=== PATIENT | male | born 1950 | race Caucasian/White ===

== ENCOUNTER 2023-06-16 06:56 | Observation (INO) ==
--- NOTE | 2023-05-23 11:46 | PAT Medication Instructions ---
Medication Instructions Date of Service May 23, 2023 Home Medications amlodipine 5 mg tablet 5 mg PO QAM levothyroxine 50 mcg tablet 25 mcg PO QAM valsartan 320 mg tablet 320 mg PO QAM DO NOT take the morning of surgery valsartan 320 mg tablet 320 mg PO QAM Take morning of surgery With a small sip of water, OTHERWISE NOTHING TO EAT OR DRINK AFTER MIDNIGHT: amlodipine 5 mg tablet 5 mg PO QAM levothyroxine 50 mcg tablet 25 mcg PO QAM Other Notes If you have any questions please call us at [phone] or [phone] or [phone] or [phone]
--- NOTE | 2023-05-25 11:37 | Anesthesiology Consultation ---
Date of Service May 25, 2023 Assessment & Plan (1) Encounter for pre-operative examination: - Infectious disease screening: Per assessment on 05/25/23: No known infectious disease contacts or current infectious disease symptoms. No noted Covid positive test result in past 90 days. - Outpatient joint assessment: Pt currently scheduled for inpatient pathway. If surgeon requests review for outpatient joint pathway, patient is an acceptable candidate for outpatient joint program from anesthesia standpoint pending surgeon's office assessment that patient is motivated, has good support and completes [facility] Day [facility] Program preop requirements. Chart Review Chart Review: Acceptable Risk for Surgery and Patient seen in Pre Admission Testing Teaching & Discussion Pre-Anesthesia Teaching/Discussion Notes: Instructed NPO after midnight before surgery,except medications with 15 cc of water. Medication instructions provided according to the PAT guidelines. History Surgery Operation Date: 06/16/23 12:40 Proposed Procedures p Right Anterior Total Hip Arthroplasty - Jonathan Martinez, Height/Weight Height: 5 ft 7 in Weight: 81.9 kg Allergies Allergy/AdvReac Type Severity Reaction Status Date / Time No Known Allergies Allergy Verified 05/18/23 15:32 Medications Home Medications Medication Instructions Recorded Confirmed Last Taken amlodipine 5 mg tablet 5 mg PO QAM 05/18/23 05/18/23 Unknown levothyroxine 50 mcg tablet 25 mcg PO QAM 05/18/23 05/18/23 Unknown valsartan 320 mg tablet 320 mg PO QAM 05/18/23 05/18/23 Unknown hydrochlorothiazide 25 mg tablet 25 mg PO DAILY 05/25/23 05/25/23 Unknown Past Medical History Medical History Acid reflux Anemia Hard of hearing Hypertension Hypothyroidism Osteoarthritis of right hip Exercise / Class Metabolic Activity II 4-5 Yardwork/Stairs/Walk up hill (one FS (no CP, no SOB)) Past Family History Family History Mother Family history of reaction to anesthesia had stager 4 lung cancer and /aspirated after esophageal dilation procedure Past Surgical History Surgical History History of anesthesia reaction BP dropped after hernia repair History of root canal procedure History of tooth extraction History of umbilical hernia repair Past Anesthesia History Other Patient- BP dropped after hernia repair (felt r/t to dehydration, resolved with IVF) Mother- had stager 4 lung cancer and /aspirated after esophageal dilation procedure History of PONV No Hx of PONV and No Hx of Motion Sickness Social History Smoking Status: Never smoker Do You Dip or Chew Tobacco: No Hx Alcohol Use: No Hx Substance Use: No substance use type: does not use Review of Systems Patient denies chest pain, shortness of breath, dyspnea on exertion, fever, chills, cough, wheezing, palpitations. Physical Exam Vital Signs VITALS BP 155/85 P 61 TEMP 98.3 SP02 97%RA RESP 16 PHYSICAL Full cervical extension range of motion. Full TMJ range of motion. TMD 3.5 finger breaths Mallampati Score 3 Dentition: missing side, right lower side- root canal repair with titanium alisa which broke Lungs: clear throughout to auscultation Cardiac: regular rate and rhythm, no murmurs noted Spine: normal Carotid arteries: negative bruit Extremities: no LE edema Lab Results Anesthesia Preop Results Results Anesthesia Widget: WBC 5.43 K/ul (4.8-10.8) 05/25/23 Hgb 12.9 g/dl (14.0-18.0) L 05/25/23 Hct 38.0 % (42.0-52.0) L 05/25/23 Plt 219 K/uL (130-400) 05/25/23 Na 135 mmol/L (136-145) L 05/25/23 K 3.9 mmol/L (3.5-5.1) 05/25/23 Cl 103 mmol/L (98-107) 05/25/23 CO2 26 mmol/L (21-32) 05/25/23 BUN 22 mg/dl (6-23) 05/25/23 Creat 0.95 mg/dl (0.6-1.4) 05/25/23 Glucose Level 108 mg/dl (70-99(Fasting)) H 05/25/23 PT 10.9 Seconds (9.0-12.0) 05/25/23 PTT 29.1 Seconds (21.0-31.0) 05/25/23 INR 1.0 (0.9-1.1) 05/25/23 Blood Type A Positive 05/25/23 Antibody Screen NEGATIVE 05/25/23 Testing Laboratory Results Preop labs note anemia with hgb at 12.9. Per PCP office, most recent CBC for patient had hgb in the 13s. Preop testing forwarded to PCP for continuity of care* Electrocardiogram Date: 05/25/23 SB at 57bpm. "Otherwise normal ECG" Chest X-Ray Date: 05/25/23 FINDINGS: Hiatal hernia. Mild cardiomegaly. No pneumothorax, large pleural effusion or pulmonary edema. Mild linear atelectasis versus scarring in the lateral left lung base. Bones appear grossly intact. IMPRESSION: No acute process of the chest. Hiatal hernia.
--- NOTE | 2023-06-15 06:34 | History & Physical Report ---
Date of Service June 15, 2023 Assessment & Plan (1) Osteoarthritis of right hip: We will proceed with a right anterior total of arthroplasty. Postoperatively he will be started on aspirin for DVT prophylaxis and kept overnight in the hospital for postop medical management. He will be discharged home the . History of Present Illness Chief Complaint: Osteoarthritis of the right hip. Primary Care Provider: Berhane Chacon Ace is a pleasant 73-year-old male who has been dealing with chronic right hip pain. It started back in the early 80s. He was treated with some of anti- inflammatories. His symptoms have waxed and waned over the years. They have been much more severe over the past 2 years. He saw another physician and had x-rays and was treated conservatively. Unfortunately, he is continuing to have a lot of pain. X-rays and clinical examination have shown worsening osteoarthritis of the right hip. After failing conservative treatment, he has elected proceed with a right anterior total hip arthroplasty. Allergies Allergy/AdvReac Type Severity Reaction Status Date / Time No Known Allergies Allergy Verified 05/18/23 15:32 Home Medications Medication Instructions Recorded Confirmed Type amlodipine 5 mg tablet 5 mg PO QAM 05/18/23 05/18/23 History levothyroxine 50 mcg tablet 25 mcg PO QAM 05/18/23 05/18/23 History valsartan 320 mg tablet 320 mg PO QAM 05/18/23 05/18/23 History hydrochlorothiazide 25 mg tablet 25 mg PO DAILY 05/25/23 05/25/23 History Past Med/Surg History Medical History Anemia Acid reflux Hard of hearing Hypothyroidism Hypertension Osteoarthritis of right hip Surgical History History of anesthesia reaction BP dropped after hernia repair History of umbilical hernia repair History of root canal procedure History of tooth extraction Family History Mother Family history of reaction to anesthesia had stager 4 lung cancer and /aspirated after esophageal dilation procedure Social History Smoking Status: Never smoker Second Hand Exposure: No; Do You Dip or Chew Tobacco: No; Tobacco Cessation Education Requested by Patient: No Hx Alcohol Use: No Hx Substance Use: No Preferred Language: Gibraltarian Communication Ability: Effective 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 Physical Exam On physical examination the right hip, he has decreased range of motion with internal/external rotation. He has pain in his groin.. Constitutional WD/WN, vitals as above Eyes PERRL, conjunctivae normal, anicteric sclerae ENMT external ear and nose normal, oropharynx normal Neck trachea midline, no thyromegaly Respiratory normal respiratory effort Cardiovascular RRR, no murmur, no edema Gastrointestinal (Abdomen) normal bowel sounds, soft, nontender, no hepatosplenomegaly Psychiatric A+Ox3, euthymic affect Results & Data Results & Data Laboratory Results . Diagnostic Findings X-rays of the right hip and pelvis show advanced osteoarthritis with joint space narrowing osteophyte formation and tdir-yi-dwwn articulation.. PG Care Time/CCT Total # of Minutes Spent Total Time Spent with Patient: Total time spent is greater than 50% in coordination of care (as documented) at patient's floor/unit and/or counseling patient: Coding Level of Care Code None Diagnoses Osteoarthritis of right hip M16.11
[~2023-06-16 06:56] MED LIST: ACETAMINOPHEN 500 MG TAB PO SCH; BUPIVACAINE 0.5 % 5 MG/1 ML PF 10ML VIAL ONE; FAMOTIDINE 20 MG TAB PO SCH; GABAPENTIN 300 MG CAP PO SCH; Ketorolac (*for OR use only*) 30 MG, dexAMETHasone 4 MG, KETAMINE HCL (**OR use only) 1... INFIL SCH; LR 500ML BOLUS, THEN 15ML/HR IV SCH; LR 60ML/HR IV SCH; TRANEXAMIC ACID 1,000 MG **IV Intra-op IV SCH; TRANEXAMIC ACID 1,000 MG **IV Pre-op IV SCH; ceFAZolin 2000MG 2,000 MG/15 ML SYR IV SCH; dexAMETHasone 4 MG TAB PO SCH
--- NOTE | 2023-06-16 08:05 | History & Physical Bridge Note ---
Date of Service June 16, 2023 History & Physical Bridge Note I have examined the patient, reviewed the History & Physical and in the interval since the performance of the History & Physical I have noted the following changes of clinical significance: no changes noted
[2023-06-16] MEDS ORDERED: fentaNYL citrate PF 100 MCG/2 ML VIAL ONE (08:10)
[2023-06-16] MEDS ORDERED: PROPOFOL IV EMULSION 10 MG/ML 20 ML VIAL IV ONE (08:10)
[2023-06-16] MEDS ORDERED: LIDOCAINE 2% 2 ML VIAL/AMP(20MG/ML) INFIL ONE (08:10)
[2023-06-16] MEDS ORDERED: ONDANSETRON INJ 2 MG/ML 2 ML VIAL ONE (08:10)
[2023-06-16] MEDS ORDERED: MIDAZOLAM HCL 1 MG/ML 2ML VIAL ONE (08:10)
[2023-06-16] MEDS ORDERED: fentaNYL citrate PF 100 MCG/2 ML VIAL IV PRN (08:24)
[2023-06-16] MEDS ORDERED: ATROPINE SULFATE 0.1 MG/ML 10ML SYR IV PRN (08:24)
[2023-06-16] MEDS ORDERED: ePHEDrine sulfate 50 MG/ML AMP IV PRN (08:24)
[2023-06-16] MEDS ORDERED: ONDANSETRON INJ 2 MG/ML 2 ML VIAL IV PRN ×2 (08:24→12:54)
[2023-06-16] MEDS ORDERED: ORTHO JOINT ANESTHETIC ONE (08:42)
[2023-06-16] MEDS ORDERED: PHENYLEPHRINE 100MCG/ML 10ML SYR IV ONE (09:48)
[2023-06-16] MEDS ORDERED: PHENYLEPHRINE HCL 10 MG/ML VIAL ONE (10:04)
--- NOTE | 2023-06-16 10:35 | Fluoroscopy Report ---
FL hip RT 1V CLINICAL HISTORY: RIGHT ANTERIOR HIPright hip arthroplasty COMPARISON STUDY: 04/25/2023 FLUOROSCOPY TIME: 20 seconds FLUOROSCOPY IMAGES: 1 EXPOSURE DOSE: 1.24 mGy FINDINGS: Right hip arthroplasty and a straight satisfactory alignment. Expected postoperative soft t issue swelling with deep tissue air. IMPRESSION: Right hip arthroplasty with expected postoperative changes. ACT 112: Negative or not required by law. Electronically signed by: Vineet Flores M.D. 06/16/2023 10:34 AM
--- NOTE | 2023-06-16 11:09 | XRay Report ---
XR hip 1V RT w pelvis CLINICAL HISTORY: IN PACU - Post Surgical TECHNIQUE: 1 view of the right hip and single frontal view of the pelvis were obtained. Comparison: None available at the time of this dictation. FINDINGS: Patient is status post total hip arthroplasty with expected postsurgical changes including soft tissu e swelling and subcutaneous emphysema. IMPRESSION: Expected postoperative appearance status post placement of total hip arthroplasty. ACT 112: Negative or not required by law. Electronically signed by: Darío Ogden M.D. 06/16/2023 11:08 AM
[2023-06-16] MEDS ORDERED: HYDROmorphone INJ 2 MG/ML SYR/VIAL ONE (11:45)
--- NOTE | 2023-06-16 12:31 | Anesthesiology Progress Note ---
Date of Service June 16, 2023 Anesthesia Post Procedure Vital Signs Vital Signs: Temp Pulse Pulse Resp BP Pulse Ox O2 Del Method 06/16/23 11:40 97.5 F L 60 16 118/71 97 Room Air 06/16/23 11:30 56 L 18 113/68 95 Room Air 06/16/23 11:20 57 L 16 123/74 96 Room Air 06/16/23 11:10 68 20 123/73 99 Room Air 06/16/23 11:00 69 14 110/74 97 Room Air 06/16/23 10:50 66 16 120/70 100 Oxymask 06/16/23 10:40 64 13 107/64 100 Oxymask 06/16/23 10:33 97.5 F L 68 14 96/57 L 100 Oxymask 06/16/23 07:45 97.5 F L 67 18 154/93 H 98 Room Air O2 Flow Rate 06/16/23 11:40 06/16/23 11:30 06/16/23 11:20 06/16/23 11:10 06/16/23 11:00 06/16/23 10:50 6 06/16/23 10:40 9 06/16/23 10:33 9 06/16/23 07:45 Transfer of Care Handoff Completed per policy Notes Mental Status: alert / awake / arousable and participated in evaluation Patient Amnestic to Procedure: Yes Nausea / Vomiting: adequately controlled Pain: adequately controlled Airway Patency, RR, SpO2: stable & adequate BP & HR: stable & adequate Hydration State: stable & adequate Neuraxial Anesthesia: was administered and sensory block is resolving Anesthetic Complications: no major complications apparent and Pt Satisfied with anesthetic care
[2023-06-16] MEDS ORDERED: METOCLOPRAMIDE HCL INJ 5 MG/ML 2 ML VIAL IV PRN (12:54)
[2023-06-16] MEDS ORDERED: HYDROmorphone INJ 0.5 MG/0.5 ML SYR IV PRN (12:54)
[2023-06-16] MEDS ORDERED: bisacodyL 10 MG SUPP PR PRN (12:54)
[2023-06-16] MEDS ORDERED: oxyCODONE HCL IR 5 MG TAB (IMMEDIATE RELEASE) PO PRN (12:54)
[2023-06-16] MEDS ORDERED: NALOXONE HCL 0.4 MG/1 ML VIAL/CARP IV PRN (12:54)
[2023-06-16] MEDS ORDERED: MAGNESIUM HYDROXIDE SUSP 30 ML UDC PO PRN (12:54)
[2023-06-16] MEDS: SODIUM CHLORIDE 0.9% 1,000 ML IV SCH ×2 (13:21→22:06)
[2023-06-16] MEDS: ACETAMINOPHEN 500 MG TAB PO SCH ×2 (13:22→22:07)
[2023-06-16] MEDS: KETOROLAC TROMETHAMINE 15 MG/ML VIAL IV SCH ×2 (14:14→18:45)
[2023-06-16] MEDS: ceFAZolin 2000MG 2,000 MG/15 ML SYR IV SCH (16:05)
[2023-06-16] MEDS: ASPIRIN 81 MG ECTAB PO SCH (20:42)
[2023-06-16] MEDS: DOCUSATE SODIUM 100 MG CAP PO SCH (20:43)
[2023-06-16] MEDS ORDERED: SENNA 8.6 MG TAB PO SCH (21:00)
[2023-06-17] MEDS: KETOROLAC TROMETHAMINE 15 MG/ML VIAL IV SCH ×2 (01:35→08:25)
[2023-06-17] MEDS: ceFAZolin 2000MG 2,000 MG/15 ML SYR IV SCH (01:35)
[2023-06-17] MEDS: ACETAMINOPHEN 500 MG TAB PO SCH (05:22)
[2023-06-17] MEDS ORDERED: LEVOTHYROXINE SODIUM 25 MCG TABLET PO SCH (06:30)
[2023-06-17] MEDS ORDERED: dexAMETHasone 4 MG TAB PO SCH (08:00)
[2023-06-17] MEDS: DOCUSATE SODIUM 100 MG CAP PO SCH (08:26)
[2023-06-17] MEDS: ASPIRIN 81 MG ECTAB PO SCH (08:27)
[2023-06-17] MEDS ORDERED: amLODIPine BESYLATE 5 MG TAB PO SCH (09:00)
[2023-06-17] MEDS ORDERED: hydroCHLOROthiazide 25 MG TAB PO SCH (09:00)
[2023-06-17] MEDS ORDERED: MULTIVITAMIN TAB PO SCH (09:00)
[2023-06-17] MEDS ORDERED: VALSARTAN 80 MG TAB PO SCH (09:00)
--- NOTE | 2023-06-17 09:23 | Orthopedic Progress Note ---
Date of Service June 17, 2023 Assessment & Plan (1) Status post right hip replacement: Overall he is doing very well. He is not having much pain in the right hip. He will be seen by physical therapy today for ambulation and range of motion exercises. He is on aspirin for DVT prophylaxis. He can be discharged home later today. He will follow-up orthopedics in 2 weeks. Subjective Ace was seen and examined at bedside this morning. Overall is doing very well. Is not having much pain in the right hip. Is been up and ambulate to the bathroom. Has no complaints.. Review of Systems All systems reviewed & are unremarkable except as noted in HPI & below. Physical Exam On physical examination of right hip, the dressing is clean and dry. His leg is out full extension. He is active dorsiflexion plantarflexion of his right ankle.. Results & Data Results & Data Laboratory Results . Diagnostic Findings Postoperative x-rays of the right hip show the prosthesis to be in anatomic alignment without any evidence of fracture complication, or loosening.. PG Care Time/CCT Total # of Minutes Spent Total Time Spent with Patient: Total time spent is greater than 50% in coordination of care (as documented) at patient's floor/unit and/or counseling patient: Coding Level of Care Code 54749 Post Operative Follow-Up Diagnoses Status post right hip replacement Z96.641
--- NOTE | 2023-06-17 09:24 | Discharge Summary ---
Date of Service June 17, 2023 Admission HPI (Per Admitting) Ace is a pleasant 73-year-old male who has been dealing with chronic right hip pain. It started back in the early 80s. He was treated with some of anti- inflammatories. His symptoms have waxed and waned over the years. They have been much more severe over the past 2 years. He saw another physician and had x-rays and was treated conservatively. Unfortunately, he is continuing to have a lot of pain. X-rays and clinical examination have shown worsening osteoarthritis of the right hip. After failing conservative treatment, he has elected proceed with a right anterior total hip arthroplasty. Admission Exam (Per Admitting) On physical examination the right hip, he has decreased range of motion with internal/external rotation. He has pain in his groin.. Principal Diagnosis Same as "Discharge Diagnosis" noted below under Discharge Instructions. Discharge Exam On physical examination of right hip, the dressing is clean and dry. His leg is out full extension. He is active dorsiflexion plantarflexion of his right ankle.. Discharge Data Procedures Performed Operation Date: 06/16/23 09:00 Actual Procedures p Right Anterior Total Hip Arthroplasty(Right) - Jonathan Martinez DO Ordered Studies 06/16/23 09:00 FL hip RT 1V Routine Hospital Course (1) Status post right hip replacement: On June 16 2023 Ace arrived at [facility] and underwent a right anterior hip replacement without complication. He had a spinal anesthetic. Postoperatively he was started on aspirin for DVT prophylaxis and transferred to the general orthopedic floors. His hospital course was uneventful. On postop day #1, his vital signs were stable and his pain was well-controlled. He was able to participate well with physical therapy doing ambulation and range of motion exercises. He was then discharged home. He will follow-up orthopedics in 2 weeks. PG Care Time/CCT Total # of Minutes Spent Total Time Spent with Patient: Total time spent is greater than 50% in coordination of care (as documented) at patient's floor/unit and/or counseling patient: Discharge Plan Discharge Items Patient Disposition: Home - Home Health Services Reason For Visit: Right Hip Degenerative Joint Disease Discharge Diagnosis: Right hip replacement Activity: Per Instructions section Non-emergency contact: Surgeon Call non-emergency contact if: your wound has increased redness and your wound has increased drainage Follow-up/Referrals: Berhane Chacon [Primary Care Provider] - Diet: Regular Addtl Attending Provider Instructions: Activity and Therapy Recommendations: * If you are using [facility] then therapy will be provided at your home until they feel you have accomplished all of your goals. * If you are using [facility] then Physical Therapy will be provided until they feel you are ready to start Outpatient Physical Therapy. * If you are not using home therapy then Outpatient Physical Therapy should start about 3-5 days from your day of surgery. Therapy will last about 6-10 weeks * You were shown a series of exercises in the hospital. Do these exercises three times each day including the exercises you were shown in physical therapy. * Get up and walk several times each day.~ For the first four weeks, try not to stand or walk for more than one hour at a time. If you do stand or walk for more than one hour, you will not hurt anything, but your leg will likely swell.~~ * As you feel comfortable, you may change from the walker or crutches to a cane and~then to independent walking. Medications: * Narcotic You will likely be sent home from the hospital with a prescription for the narcotic pain medication that worked best throughout your stay. * Aspirin Most patients will be required to take Aspirin 81mg twice a day for 6 weeks after surgery. This is obtained [id number] and a prescription is not necessary. * Cefadroxil -take the antibiotic twice a day for 10 days to help with infections. * Other medications may be prescribed for specific circumstances. If you have any questions, please call the office at . * Resume previous home medications unless otherwise instructed TEDs/Elastic Stockings: The white elastic stockings help limit swelling and prevent blood clots from forming in your legs. The more you wear them, the more they work. Wear them for six weeks. Dressing Care: Leave the Silverlon dressing in place for 7 days. After 7 days you may remove the dressing. If the incision is not draining then you may leave the zeke open to air. If there is a little bit of drainage or if the zeke are getting stuck on your clothing then cover the incision with a dry dressing. The zeke will be removed at your 2 week follow-up appointment. Showering: You may shower with the Silverlon dressing in place. Do not let the shower spray hit the dressing directly. Pat the Silverlon dressing dry. If the dressing becomes wet underneath, then simply remove the dressing. Keep the incision dry until you are 7 days out from the day of surgery. After 7 days you may remove the Silverlon dressing and shower with the zeke exposed. Let soapy water run over the zeke and pat them dry. Do not scrub or soak the incision. Things To Watch For: * Drainage from the incision site that occurs more than one week after your surgery. * Increased redness at the incision site. * Fever above 102 degrees Fahrenheit. * Unusual chest pain or shortness of breath. * Call [facility] at with any of the above problems Follow-Up Visit: Follow-up with Dr. Martinez's PA (Jonathan Greenwood) 2-3 weeks after your day of surgery. He will remove your zeke and answer any questions. If you have any additional questions or concerns, Dr Martinez is usually in the office at the same time and will be available An appointment was probably scheduled when you signed-up for surgery in the office. If you have any questions call Office Instructions: More detailed instructions as well as Frequently Asked Questions were provided in a folder by our office when you signed-up for surgery. Please review these instructions when you get home. If you have any further questions or concerns, please feel free to call the office at [phone] Pending Studies at Discharge: No Stand-Alone Forms: My [facility], Smoking Cessation Medications and DC Order Prescriptions: New oxycodone 5 mg Tablet 5 mg PO Q4H PRN (Reason: pain) Qty: 30 0RF cefadroxil 500 mg capsule 500 mg PO BID 10 Days Qty: 20 0RF aspirin 81 mg Tablet,Delayed Release (Dr/Ec) 81 mg PO BID 42 Days Qty: 0 0RF Continued amlodipine 5 mg Tablet 5 mg PO QAM levothyroxine 50 mcg Tablet 25 mcg PO QAM valsartan 320 mg Tablet 320 mg PO QAM hydrochlorothiazide 25 mg Tablet 25 mg PO DAILY Admission Data Admit Date/Time: 06/16/23 10:36 Attending Provider: Jonathan Martinez Admit Provider: Jonathan Martinez Primary Care Provider: Berhane Chacon
--- NOTE | 2023-06-26 11:07 | Operative Report ---
PG Post Operative Report Pre & Post Diagnosis Operation Date: 06/16/23 09:00 Pre-Op Diagnosis: Right Hip Degenerative Joint Disease Post-Op Diagnosis: Right Hip Degenerative Joint Disease I identified the patient and participated in the time-out.: Yes Procedure Operation Date: 06/16/23 09:00 Actual Procedures p Right Anterior Total Hip Arthroplasty(Right) - Jonathan Martinez DO Surgeon Jonathan Martinez DO Sulfuric Acid Plant Supervisor Jonathan Greenwood PA-C Estimated Blood Loss 150 Findings Consistent with Post-Op Diagnosis Specimens Right femoral head Description of Procedure Implants used I used a ZimmerBiomet total hip arthroplasty system with a size 5 Avenir Complete stem, a 50 mm G7 cup with a 25mm screw, an E1 polyethylene liner, a 36 mm ceramic head with a 0 neck. Ace arrived at the hospital for the above procedure. He was seen in the preoperative holding area and the operative extremity was identified and signed. He was given a spinal anesthetic, a preoperative antibiotic, and TXA. He was then taken back to the operating room and laid on the table in the supine position. He was given basic sedation. The operative leg was secured to a Puristst leg positioner. The hip was then prepped and draped in sterile fashion. A timeout was done and the patient and the operative extremity was properly identified. An anterior approach was used. Dissection was taken down through the fascia and the tensor muscle belly was retracted laterally and the rectus was retracted medially. The circumflex vessels were identified and ligated. The capsule was then incised and tagged for later repair. The femoral neck was then cut and the femoral head was removed. The acetabulum was exposed. Time was spent doing a complete circumferential labral release. Sequential reaming of the acetabulum up to a size 49 reamer was done. Final reamings were done under fluoroscopy to ensure appropriate version. A Biomet 50 mm G7 cup was then impacted into place. A single 25 mm screw was placed. The E1 polyethylene liner was then snapped into place. Surrounding soft tissues were then injected with 100 cc of an orthopedic pain control cocktail. The proximal femur was then exposed. Sequential broaching up to a size 5 broach was done. Off that broach a size 36 head with a 0 neck was trialed. The hip was reduced and fluoroscopic images showed anatomic alignment of the implants in acceptable length. The broach was removed. The final size 5 Avenir Complete stem was then impacted into place. A ceramic 36 mm head with a 0 neck was then impacted onto the stem and the hip was reduced. Final fluoroscopic images showed anatomic alignment of the hip. The capsule was then closed with #1 Vicryl suture. A dilute betadyne lavage was then done for 3 minutes. The joint was then irrigated with normal saline solution. The fascia was closed with #1 PDS suture. Skin was closed with 2-0 Vicryl, zeke, and a Silverlon dressing. He was then transferred to a hospital bed and taken to the post anesthesia care unit in stable condition. He tolerated the procedure well. Jonathan Greenwood PA-C, was present for the entire procedure. He was critical for patient positioning, prepping, draping, retraction exposure, wound closure and application of sterile dressing. I attest to the content of the Intraoperative Record and any orders documented therein. Any exceptions are noted below.
== END 2023-06-17 11:47 | disposition home or self-care (01) ==
LOC: ASU 06:56 → 3E 06:56